=== PATIENT | female | born 1950 | race Caucasian/White ===

== ENCOUNTER 2019-01-17 07:54 | Outpatient (CLI) | payer MEDICARE, BC ==
[~2019-01-17] VITALS: Ht 170.2 cm; Wt 49.1 kg
--- NOTE | ~2019-01-17 | HEMODYNAMI ---
PATIENT:ROEMLIA HOLLOWAY MEDICAL RECORD: [id number] : 48 LOCATION:[facility] ADMISSION DATE: 01/17/19 Generatedon:01/17/201913:54 Patient name: ROMELIA HOLLOWAY Patient #: [id number] SSN: D OB: 1950 Date of study: 01/17/2019 Page: Of Hemodynamic Procedure Report Patient Data Patient Demographics Procedure consent was obtained First Name: ROMELIA Gender: Female Last Name: JEWEL : 1950 Middle Initial: A Age: 68 year(s) Patient #: [id number] Race: Unknown Additional ID: [id number] Contact details Address: [address] [place] [address] State: [place] City: [place] Zip code: [address] Past Medical History Allergies: No known allergies Admission Admission Data Admission Date: 01/17/2019 Admission Time: 7:54 Procedure Procedure Types Cath Procedure Peripheral Cath Diagnostic Procedure Kyphoplasty Kyphoplasty Thoracic Procedure Description Procedure Date Procedure Date: 01/17/2019 Procedure Start Time: 13:05 Procedure Staff Name Function Satinder Abdul MD Performing Physician Erika Myers RT Monitor RIK RODRIGUEZ RT Scrub Pascale Laar RN Nurse Nelly Rodriguez RN Nurse Jose Topete CRNA Additional personnel Procedure Data Cath Procedure Fluoroscopy Diagnostic fluoroscopy Total fluoroscopy Time: 9.8 time: 9.8 min min Diagnostic fluoroscopy Total fluoroscopy dose: 144 dose: 144 mGy mGy Procedure Medications Medication Administration Route Dosage Heparin Flush Bag added to field 1 bags (1000units/500ml NS) Lidocaine 1% added to field 20 Hemodynamics Rest Heart Rate: 79 (bpm) Snapshots Pre Cath Intra NCS Post Cath Vital Signs Time Heart Resp SPO2 etCO2 NIBP (mmHg) Rhythm Pain Sedation Rate (ipm) (%) (mmHg) Status Level (bpm) 12:43:30 76 3 89 15.7 Measuring NSR 0 (11) 10(A) , No pain 12:43:58 118 3 92 15.7 86/59(63) NSR 0 (11) 10(A) , No pain 12:48:57 76 30 97 15 Measuring NSR 0 (11) 10(A) , No pain 12:49:34 88 17 99 35.3 117/49(77) NSR 0 (11) 10(A) , No pain 12:53:48 77 7 100 21 75/40(58) NSR 0 (11) 10(A) , No pain 12:56:40 79 7 100 28.5 78/39(55) NSR 0 (11) 10(A) , No pain 12:59:40 81 11 99 28.5 93/58(73) NSR 0 (11) 10(A) , No pain 13:03:42 80 10 100 24 95/54(79) NSR 0 (11) 10(A) , No pain 13:07:44 78 11 100 24.7 97/57(83) NSR 0 (11) 10(A) , No pain 13:12:05 84 17 93 12 164/126(145) NSR 0 (11) 10(A) , No pain 13:13:13 85 14 81 1.5 89/74(82) NSR 0 (11) 10(A) , No pain 13:16:03 78 10 100 30.8 86/49(81) NSR 0 (11) 10(A) , No pain 13:20:02 72 22 27.8 90/53(83) NSR 0 (11) 10(A) , No pain 13:24:02 74 8 100 29.2 101/57(80) NSR 0 (11) 10(A) , No pain 13:28:08 71 4 100 30 100/53(90) NSR 0 (11) 10(A) , No pain 13:32:13 70 5 100 28.5 107/53(78) NSR 0 (11) 10(A) , No pain 13:36:21 71 5 100 28.5 99/50(78) NSR 0 (11) 10(A) , No pain 13:40:23 71 6 100 27 101/60(85) NSR 0 (11) 10(A) , No pain 13:44:25 71 8 100 24 106/62(86) NSR 0 (11) 10(A) , No pain 13:48:28 125 6 100 30 100/64(90) NSR 0 (11) 10(A) , No pain 13:52:28 69 10 34.5 No Cuff NSR 0 (11) 10(A) , No pain Medications Time Medication Route Dose Verified Delivered Reason Notes Effe ctiveness by by 12:35:41 Heparin Flush added 1 Satinder Rajan used for Bag to bags Franko Abdul procedure (1000units/500ml field MD WOODS NS) 12:36:06 Lidocaine 1% added 20ml Satinder Rajan for local to vial Franko Abdul anesthetic field MD WOODS Procedure Log Time Note 12:17:03 Use device set IR Diagnostic 12:17:04 Tegaderm 4 x 4 ([id number]) opened to sterile field. 12:17:05 Sterile Angiographic Pack opened to sterile field. 12:17:05 Bag Decanter () opened to sterile field. 12:17:32 Coram BONE BX 11GA kit opened to sterile field. 12:17:32 Coram BONE CEMENT WITH NEEDLE AUTOPLEX Kit opened to sterile field. 12:17:33 TEN 10/2 AUGMENTAION JAYCEE KIT opened to sterile field. 12:17:33 TEN 10/2 AUGMENTAION JAYCEE KIT opened to sterile field. 12:17:44 - 12:26:44 Nelly Rodriguez RN sent for patient. Start room use. 12:26:45 Time tracking: Regular hours (M-F 7:00 - 5:00) 12:26:50 Plan of Care:Hemodynamics will remain stable., Cardiac rhythm will remain stable., Comfort level will be maintained., Respiratory function will remain adequate., Patient/ family verbilizes understanding of procedure., Procedure tolerated without complication., Recovers from procedure without complications.. 12:26:56 Patient received from Outpatients to IR Alert and oriented. Tansferred to table in Prone position. 12:26:58 Signed procedure consent form obtained from patient. 12:26:59 Warm blankets applied, and mio hugger turned on for patient comfort. 12:27:00 Correct patient and procedure confirmed by team. 12:27:02 - 12:27:06 H&P Date Dictated: 01/17/2019 H&P Addendum completed by physician on day of procedure. (MUST COMPLETE FOR ALL OUTPATIENTS). 12:27:07 Pre-procedure instructions explained to patient. 12:27:09 Pre-op teaching completed and patient verbalized understanding. 12:27:20 Family in waiting room. 12::22 Patient NPO since Midnight. 12:30:32 Patient allergic to No known allergies 12:31:26 Is the patient allergic to Iodine/contrast media? No. 12:31:28 Is patient on blood thinner?No 12:31:30 Patient diabetic? No. 12:31:32 - 12:31:34 ----see anethesia note for Pre-sedation anethsthesia assessment.---- 12:32:18 IV patent on arrival in left wrist with D5/.45%NaCl at KVO. 12:32:29 Thoracic area was prepped with chlora-prep and draped in sterile fashio n 12:32:32 - 12:35:41 Heparin Flush Bag (1000units/500ml NS) 1 bags added to field was administered by Satidner Abdul MD; used for procedure; Verbal order read back and verified. 12:36:06 Lidocaine 1% 20ml vial added to field was administered by Satinder walker MD; for local anesthetic; Verbal order read back and verified. 12:41:40 Vital chart was started 12:43:31 ECG and BP/O2 sat monitors applied to patient. 12:43:33 Baseline sample Acquired. 12:43:34 Full Disclosure recording started 12:43:35 - 13:03:56 Physician arrived 13:03:57 --------ALL STOP TIME OUT------ 13:03:57 Final Timeout: patient, procedure, and site verified with staff and physician. All members of the team are in agreement. 13:04:27 Fire Safety Assessment: A--An alcohol-based skin anteseptic being used preoperatively., C--Open oxygen or nitrous oxide is being used. 13:04:55 Procedure started. 13:05:01 Local anesthetic to Thoracic area with Lidocaine 1% by Satinder Abdul MD.INITIAL ACCESS ONLY 13:12:35 Baseline sample Acquired. 13:18:51 Jamshidi needle introduced. 13:21:57 Bone bx needle placed. 13:25:08 Kyphoplasty balloon introduced. 13:30:40 Cement introduced to vertebral body. 13:40:54 Jamshidi needle removed. 13:43:06 Procedure ended.(Physican Out) 13:53:00 Fluoroscopy time 09.80 minutes. 13:53:08 Fluoroscopy dose: 144 mGy 13:53:08 Flurop Dose total: 144 13:53:39 Procedure and supply charges have been captured, reviewed, submitted an d are correct. 13:54:24 Report given to Outpatients. 13:54:45 Vital chart was stopped Device Usage Item Name Manufacture Quantity Catalog Hospital Part Current Minim al Lot# / Number Charge Number Stock Stock Serial# Code Tegaderm 4 x 3M 1 [id number] 4 (1626W) Sterile Cardinal 1 [id number] 5 Angiographic Health Pack Bag Decanter Microtek 1 [id number] [id number] 5 () [employer] Coram BONE Ten 1 [id number] [id number] [id number] 5 BX 11GA kit Ten BONE Coram 1 [id number] 5 CEMENT WITH NEEDLE AUTOPLEX Kit TEN 11/15 Coram 2 [id number] 5 AUGMENTAION JAYCEE KIT Signature Audit [place] Stage Time Signature Unsigned Intra-Procedure 01/17/2019 Erika Myers 1:54:42 PM RT(R) [facility] [address] [place] [address]
[2019-01-17 08:37] LABS: BASOPHILS 0.1 % (0-2); EOSINOPHILS 1.7 % (0-7); HEMATOCRIT 45.2 % (36.0-48.0); HEMOGLOBIN 14.4 g/dL (12-16); IMMATURE GRANULOCYTES 0.2 % (0-5); LYMPHOCYTES 18.3 % (15-50); MCH 30.6 pg (26.0-34.0); MCHC 31.9 g/dL (31.0-37.0); MONOCYTES 8.4 % (2-11); NEUTROPHILS 71.3 % (40-80); PLATELET COUNT 246 10x3/uL (130-400); RBC 4.71 10x6/uL (4.00-5.40); RDW 12.8 % (11.5-14.5); WBC 9.4 10x3/uL (4.8-10.8)
[2019-01-17 08:45] LABS: APTT 29.7 SECONDS (22.8-39.4); INR 0.98 (0.85-1.17); PROTIME 12.5 SECONDS (11.6-15.0)
[2019-01-17 08:46] LABS: CALC OSMOLALITY 286 mosm/kg (275-300); CARBON DIOXIDE 33.5 mmol/L (21.0-32.0); CHLORIDE - SERUM 106 mmol/L (98-107); CREATININE - SERUM 0.8 mg/dL (0.6-1.3); GLUCOSE 109 mg/dL (74-106); SODIUM 144 mmol/L (136-145); UREA NITROGEN 10 mg/dL (7-18); eGFR NON AFRICAN AMERICAN 75 mL/min (90-120)
[2019-01-17] MEDS ORDERED: ALENDRONATE SOD35 MG PO (08:53)
[2019-01-17] MEDS ORDERED: DONEPEZIL HCL10 MG PO (08:53)
[2019-01-17] MEDS ORDERED: NAMENDA10 MG PO (08:54)
[2019-01-17 09:03] VITALS: BP 105/57; Ht 170.2 cm; Wt 49.1 kg
[2019-01-17 10:26] LABS: CHOLESTEROL, TOTAL 226 mg/dL (0-200)
--- NOTE | 2019-01-17 14:23 | NUR ---
1403-REC'D FROM [facility] BY ALCIRA WICK. DROWSY EASILY AROUSED WITH VERBAL STIMULI. DENIES PAIN,VSS. DRESSING TO LOWER BACK CDI. STRONG REGULAR PEDAL PULSES. SPOUSE AT BEDSIDE, CL IN EASY REACH. ICE WATER AT BEDSIDE. IV PATENT AT [facility]
--- NOTE | 2019-01-17 17:10 | NUR ---
1500-ASSISTED PT UP TO RESTROOM. ABLE TO URINATE WITHOUT COMPLICATIONS. VSS. DENIES PAIN. DRESSING CDI. SLOW STEADY GAIT X 1 STANDBY ASSIST. CL IN EASY REACH. AT BEDSIDE. IV PATENT AT [facility] TO LEFT ARM. REGULAR TRAY AT BEDSIDE.
--- NOTE | 2019-01-17 17:12 | NUR ---
1640-ASSISTED PT TO RESTROOM. ABLE TO URINATE WITHOUT COMPLICATIONS. AMBULATED WITH SLOW STEADY GAIT X 1 STANDBY ASSIST. REMOVED IV FROM LEFT ARM WITH CATH INTACT,DISPOSED INTO SHARPS. COVERED SITE WITH GUAZE,SECURED WITH MEDIPORE TAPE.VSS. DENIES PAIN. DIME SIZE BLOOD SPOT TO DRESSING. SPOUSE AT BEDSIDE. CL IN EASY REACH.
--- NOTE | 2019-01-17 17:14 | NUR ---
1700- ASSISTED PT IN DRESSING. REVIEWED POST OPERATIVE INSTRUCTIONS, FOLLOW UP APPOINTMENT. VERBALIZED UNDERSTANDING WITHOUT FURTHER QUESTIONS OR CONCERNS.
--- NOTE | 2019-01-17 17:15 | NUR ---
1704-ESCORTED OUT VIA W/C WITH AWAITING TO DRIVE HOME. PT ABLE TO TRANSFER INTO VEHICLE X 1 ASSIST.
== END 2019-01-17 17:04 | disposition home or self-care (01) ==
LOC: D.SP 07:54 → D.RAD 10:30 → D.SP 17:04
PROVIDERS: ATTEND Radiology Diagnostic Radiology
DX: S22.080A Wedge compression fracture of T11-T12 vertebra, initial encounter for closed fracture (principal)

== ENCOUNTER → 2019-01-25 12:51 | Outpatient (CLI) | payer MEDICARE, BC ==
[2019-01-17 09:03] VITALS: BMI 16.9
[~2019-01-25 12:51] MED LIST: ALENDRONATE SOD35 MG PO; DONEPEZIL HCL10 MG PO; NAMENDA10 MG PO
== END | disposition home or self-care (01) ==
LOC: D.MRI 12:51
PROVIDERS: ATTEND Radiology Diagnostic Radiology
DX: M54.9 Dorsalgia, unspecified (principal); Z98.890 Other specified postprocedural states